=== PATIENT | male | born 2000 | race Hispanic/Latino ===

== ENCOUNTER 2024-05-06 07:29 | Emergency (ER) | payer OTHER ==
--- OUTSIDE RECORDS SUMMARY | 2024-05-06 07:33 | XMS REPORT | Continuity of Care Document ---
Author Name Unknown Address [address] [place] [address] [facility] thconnect Address 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 Role Phone RICH LOOMIS Attending Clinician Unavailable [id number] Attending Clinician Unavailable JOSE A GALVAN Attending Clinician UnavailBREANNE Malik Attending Clinician Unajoseline ilable Payers Payer Name Policy Type Policy Number Effective Date Expirati on Date Source [employer] 2 [id number] 2023 00:00:00 Problems Condition Name Condition Details Condition Category Status Onset Date Resolution Date Last Treatment Date Treating Clinician Comments Source Well adult exam Well adult exam Disease Active 12-14 00:00: 00 Kandy Brewer - Externa l ADHD ADHD Disease Active 11-16 00:00: 00 Kandy Salgadoold - Externa l Depression Depression Disease Active 11-16 00:00: 00 Kandy Salgadoold - Externa l Current mild episode of major depressive disorder without prior episode Current mild episode of major depressive disorder without prior episode Disease Active 11-16 00:00: 00 Kandy Salgadoold - Externa l Anxiety Anxiety Disease Active 11-16 00:00: 00 Kandy Salgadoold - Externa l Obesity Obesity Disease Active 11-16 00:00: 00 Kandy Seyingold - Externa l Migraine Migraine Disease Active 11-16 00:00: 00 Kandy Lovell l Social History Social Habit Start Date Stop Date Quantity Comments Source Sexual orientation Nisha marcano Daniella - External Alcoholic beverage intake 2024-03-11 00:00:00 2024-03-11 00:00:00 Current drinker of alcohol (finding) Kandy Brewer - External Alcohol intake 2023-12-14 00:00:00 2023-12-14 00:00:00 Current drinker of alcohol (finding) Kandy Brewer - External History of Social function 2023-11-16 00:00:00 2023-11-16 00:00:00 Kandy Brewer - External Education - What is the highest level of school you have completed or the highest degree you have received? 2023-11-16 00:00:00 2023-11-16 00:00:00 Associate degree: academic program Kandy Rosario External Alcohol Comment 2023-11-16 00:00:00 2023-11-16 00:00:00 rarely Kandy Brewer - External Tobacco use and exposure 2023-11-16 00:00:00 2023-11-16 00:00:00 Smokeless tobacco non-user Kandy Brewer - External Sex assigned at 2000 00:00:00 2000 00:00:00 Kandy Brewer - External Smoking Status Start Date Stop Date Source Never smoked tobacco Kandy Brewer - External Medications Ordered Medication Name Filled Medication Name Start Date Stop Date Current Medication? Ordering Clinician Indication Dosage Frequency Signature (SIG) Comments Components Source Duloxetine HCl [address] Particles 03-11 00:00: 00 Yes [id number] 60mg Take 1 capsule (60 mg total) by mouth every morning. Kandy dickson Lisdexamfet amine Dimesylate 50 MG oral Capsule 03-11 00:00: 00 Yes [id number] 50mg Take 1 capsule (50 mg total) by mouth daily. Kandy Mayorgaa l Semaglutide -SHELLIEAvni ght Management 0.25 MG/0.5ML Subcutaneou s Solution Auto-inject or 03-11 00:00: 00 Yes [id number] 104 .25mg Inject 0.25 mg into the skin once a week. Kandy dickson Topiramate (Topamax) 25 MG oral Tablet 4 00:00: 00 Yes [id number] 104 25mg Take 1 tablet (25 mg total) by mouth daily. Kandy dickson Lisdexamfet amine Dimesylate 50 MG oral Capsule 02-04 00:00: 00 03-11 00:00 :00 No [id number] 50mg Take 1 capsule (50 mg total) by mouth daily. Kandy dickson Lisdexamfet amine Dimesylate 50 MG oral Capsule 2-12 00:00: 00 Yes [id number] 50mg Take 1 capsule (50 mg total) by mouth daily. Kandy dickson Lisdexamfet amine Dimesylate 50 MG oral Capsule 16 00:00: 00 Yes [id number] 50mg Take 1 capsule (50 mg total) by mouth daily. Kandy dickson Topiramate (Topamax) 25 MG oral Tablet 16 00:00: 00 Yes [id number] 104 25mg Take 1 tablet (25 mg total) by mouth daily. Kandy dickson Duloxetine HCl [address] Particles 16 00:00: 00 03-11 00:00 :00 No [id number] 60mg Take 1 capsule (60 mg total) by mouth every morning. Kandy dickson Lisdexamfet amine Dimesylate 50 MG oral Capsule 15 00:00: 00 Yes [id number] 50mg Take 1 capsule (50 mg total) by mouth daily. Kandy dickson Topiramate (Topamax) 25 MG oral Tablet 15 00:00: 00 Yes [id number] 25mg Take 1 tablet (25 mg total) by mouth daily. Kandy dickson Lisdexamfet amine Dimesylate 50 MG oral Capsule 2022-11 2-11 00:00: 00 2024- 01-15 00:00 :00 No 50mg Take 1 capsule (50 mg total) by mouth daily. Kandy Daniella - Externa l Duloxetine HCl [address] Lerma 2022-11-21 00:00: 00 Yes 60mg Take 1 capsule (60 mg total) by mouth every morning. Kandy Summersgodfrey - Externa l Immunizations Ordered Immunization Name Filled Immunization Name Date Status Comments Source HEPATITIS A- PEDI/ADOL Unknown Completed Kandy old - External [facility]neum[facility], [facility] 7 [facility] (1Lay), Mrna-lnp, Ole Protein, Pf, 30mcg/0.3ml,IM [facility] (1Lay), Mrna-lnp, Ole Protein, Pf, 30mcg/0.3ml,IM Unknown Completed [facility] - External Meningococcal Vaccine- Conjugate(Menactra) Unknown Completed Kandy Chadwick eybold - External HPV (Human Papillomavirus) Unknown Com[facility] - [facility] HPV (Human Papillomavirus) Unknown Completed [facility] - External HPV (Human Papillomavirus) Unknown Completed [facility] - External HEPATITIS A- PEDI/ADOL Unknown Completed [facility] - External Pneumococcal Vaccine, Conjugate 7 [facility]- PEDI/ADOL Unknown Completed [facility] - External Pneumococcal Vaccine, Conjugate 7 Unknown Completed [facility] - External HEPATITIS A- PEDI/ADOL Unknown Completed [facility] - External Pneumococcal Vaccine, Conjugate 7 Unknown Completed [facility] - External Covid-19 Vaccine (1Lay), Mrna-lnp, Ole Protein, Pf, 30mcg/0.3ml,IM Unknown [facility] Cov[facility] Vaccine (Pfizer), Mrna-lnp, Ole Protein, Pf, 30mcg/0.3ml,IM Unknown [facility] Meningococcal Vaccine- Conjugate(Menactra) Unknown Completed Kandy eybold - External HPV (Human Papillomavirus) Unknown Completed [facility] - External HPV (Human Papillomavirus) Unknown Completed [facility] - External HPV (Human Papillomavirus) Unknown Completed [facility] - External Vital Signs Vital Name Observation Time Observation Value Comments S ource Diastolic blood pressure 2024-03-11 21:18:00 78 mm[Hg] Kandy Seybo ld - External Heart rate 2024-03-11 21:18:00 87 /min Kelse y Seybold - External Body temperature 2024-03-11 21:18:00 36.56 Cathleen Kandy Seybold - External Respiratory rate 2024-03-11 21:18:00 15 /min Kandy Seybold - External Body height 2024-03-11 21:18:00 182.9 cm Tawanna ey Seybold - External Body weight 2024-03-11 21:18:00 151.501 kg Tawanna ey Seybold - External BMI 2024-03-11 21:18:00 45.30 kg/m2 Tawanna ey Seybold - External Oxygen saturation in Arterial blood by Pulse oximetry 2024-03-11 21:18:00 100 /min Kandy Seybo ld - External Systolic blood pressure 2024-03-11 21:18:00 110 mm[Hg] Kandy Seybo ld - External Systolic blood pressure 2023-12-14 22:06:00 127 mm[Hg] Kandy Seybo ld - External Diastolic blood pressure 2023-12-14 22:06:00 81 mm[Hg] Kandy Seybo ld - External Heart rate 2023-12-14 22:06:00 90 /min Kelse y Seybold - External Body temperature 2023-12-14 22:06:00 36.72 Cathleen Kandy Seybold - External Respiratory rate 2023-12-14 22:06:00 15 /min Kandy Seybold - External Body height 2023-12-14 22:06:00 182.9 cm Tawanna ey Seybold - External Body weight 2023-12-14 22:06:00 151.501 kg Atwanna ey Seybold - External BMI 2023-12-14 22:06:00 45.30 kg/m2 Tawanna ey Seybold - External Oxygen saturation in Arterial blood by Pulse oximetry 2023-12-14 22:06:00 100 /min Kandy Seybo ld - External Systolic blood pressure 2023-11-27 14:05:00 108 mm[Hg] Kandy Seybo ld - External Diastolic blood pressure 2023-11-27 14:05:00 68 mm[Hg] Kandy Seybo ld - External Heart rate 2023-11-27 14:05:00 72 /min Kelse y Seybold - External Body temperature 2023-11-27 14:05:00 35.94 Cathleen Kandy Seybold - External Respiratory rate 2023-11-27 14:05:00 15 /min Kandy Seybold - External Body height 2023-11-27 14:05:00 182.9 cm Tawanna ey Seybold - External Body weight 2023-11-27 14:05:00 150.141 kg Tawanna ey Seybold - External BMI 2023-11-27 14:05:00 44.89 kg/m2 Tawanna ey Seybold - External Systolic blood pressure 2023-11-16 17:17:00 124 mm[Hg] Kandy Seybo ld - External Diastolic blood pressure 2023-11-16 17:17:00 74 mm[Hg] Kandy Seybo ld - External Heart rate 2023-11-16 17:17:00 82 /min Kelse y Seybold - External Body temperature 2023-11-16 17:17:00 36.39 Cathleen Kandy Seybold - External Respiratory rate 2023-11-16 17:17:00 16 /min Kandy Seybold - External Body height 2023-11-16 17:17:00 182.9 cm Tawanna ey Seybold - External Body weight 2023-11-16 17:17:00 152.409 kg Tawanna ey Seybold - External BMI 2023-11-16 17:17:00 45.57 kg/m2 Tawanna ey Seybold - External Oxygen saturation in Arterial blood by Pulse oximetry 2023-11-16 17:17:00 97 /min Kandy Salgadoo ld - External Encounters Start Date/Time End Date/Time Encounter Type Admission Type Attending [facility] Care Department Encounter ID Source 2024-06-10 16:15:00 2024-06-10 16:15:00 Outpatient RICH LOOMIS [id number] Kandy Brewer 2024-04-25 00:00:00 2024-04-25 00:00:00 Outpatient [facility]OM[facility] [id number] [facility] 2024-04-11 16:30:00 2024-04-11 16:30:00 Outpatient LABErich MONTERROSO KANDY [id number] [facility] 2024-04-11 16:00:00 2024-04-11 16:00:00 Outpatient JOSE A GALVAN KANDY [id number] [facility] 2024-04-11 00:00:00 2024-04-11 00:00:00 Outpatient PREZAS, RICH MONTERROSO KANDY [id number] [facility] 2024-03-11 16:15:00 2024-03-11 16:15:00 Outpatient PREZAS, RICH KANDY MONTERROSO [id number] [facility] 2024-02-29 00:00:00 2024-02-29 00:00:00 Outpatient PREZAS, RICH KANDY MONTERROSO [id number] [facility] 2024-02-04 00:00:00 2024-02-04 00:00:00 Outpatient PREZAS, RICH MONTERROSO KANDY [id number] [facility] 2023-12-14 16:15:00 2023-12-14 16:15:00 Outpatient PREZAS, RICH [facility] [id number] [facility] 2023-11-27 08:30:00 2023-11-27 08:30:00 Outpatient KENDY BREANNE KANDY MONTERROSO [id number] [facility] 2023-11-17 09:40:00 2023-11-17 09:40:00 Outpatient LAB90 KANDY KANDY [id number] [facility] 2023-11-17 00:00:00 2023-11-17 00:00:00 Outpatient PREZAS, RICH KANDY MONTERROSO [id number] Kandy Seybold 2023-11-17 00:00:00 2023-11-17 00:00:00 Outpatient PREZAS, RICH KANDY MONTERROSO [id number] [facility] 2023-11-16 11:15:00 2023-11-16 11:15:00 Outpatient PREZAS, RICH KANDY MONTERROSO [id number] Kandy Brewer Notes Date/Time Note Provider Source 2023-11-27 08:10:34 [id number]:10:34F ormatting of this note is different from the original.Chief ComplaintPatient presents withNose BleedHad a nose bleed [place] [id number] [id number]:11:29Nurse [id number]. [id number] for patient [id number] NoteLNNARRATIVEFormatted C-CDA narrative [address][id number]:11:[id number] 2.3.15|[id number]. [id number] [facility] 2023-11-16 11:19:20 [id number]:19:20F ormatting of this note is different from the original.Chief ComplaintPatient presents withADDmedicationsJeri Lauren Blandectronically signed by Talia Bland LVN at 11/16/2023 11:45 AM [id number] [id number]:45:50Nurse [id number]. [id number] for patient [id number] NoteLNNARRATIVEFormatted C-CDA narrative [address][id number]:45:[id number] 2.3.15|[id number]. [id number] [facility]"
[2024-05-06] MEDS ORDERED: IBUPROFEN 400 MG TAB ONE (07:45)
[2024-05-06 08:24] LABS: SARS-CoV-2 Antigen CONTROL BLUE LINE VIS/BG OK; SARS-CoV-2 Antigen Rapid Res Negative (Negative)
--- NOTE | 2024-05-06 09:21 | ER ---
Nurse's Notes [facility] Name: Stevo English III Age: 24 yrs Sex: Male : 2000 Arrival Date: 05/06/2024 Time: 07:29 Bed 11 Private MD: Diagnosis: Acute pharyngitis, unspecified Presentation: 05/06 07:41 Chief complaint: Patient states: Sore throat, fever, slight cough/congestion, fatigue, ll1 MCKEON, weak, hot/cold since last night. Coronavirus screen: Client denies travel out of the [place] in the last 14 days. chills, congestion, cough unrelated to allergies, fatigue, fever, headache, muscle pain, sore throat, Client presents with at least one sign or symptom that may indicate coronavirus-19. Standard/surgical mask placed on the client. Ebola Screen: Patient denies travel to an Ebola-affected area in the 21 days before illness onset. Initial Sepsis Screen: Does the patient meet any 2 criteria? No. Patient's initial sepsis screen is negative. Does the patient have a suspected source of infection? No. Patient's initial sepsis screen is negative. Risk Assessment: Do you want to hurt yourself or someone else? Patient reports no desire to harm self or others. Onset of symptoms was May 05, 2024. 07:41 Method Of Arrival: Ambulatory 1 07:41 Acuity: CHANDAN 3 ll1 Triage Assessment: 07:43 General: Appears uncomfortable, ill, Behavior is calm, cooperative, appropriate for ll1 age. Pain: Complains of pain in head Pain currently is 10 out of 10 on a pain scale. Quality of pain is described as aching, throbbing. EENT: Reports nasal congestion pain when swallowing. Neuro: Reports headache. Respiratory: Reports cough that is. Historical: - Allergies: 07:40 No Known Drug Allergies; ll1 - Home Meds: 07:40 Vyvanse oral [Active]; Fluoxetine Oral [Active]; Topamax Oral [Active]; ll1 - PMHx: 07:40 ADD; Bipolar disorder; ll1 - PSHx: 07:40 Tonsillectomy; ll1 - Immunization history:: Adult Immunizations up to date. - Infectious Disease History:: Denies. - Social history:: Smoking status: Patient denies any tobacco usage or history of. - Family history:: not pertinent. - Hospitalizations: : No recent hospitalization is reported. Screenin:44 [facility] ED Fall Risk Assessment (Adult) History of falling in the last 3 months, ll1 including since admission No falls in past 3 months (0 pts) Confusion or Disorientation No (0 pts) Intoxicated or Sedated No (0 pts) Impaired Gait No (0 pts) Mobility Assist Device Used No (0 pt) Altered Elimination No (0 pt) Score/Fall Risk Level 0 - 2 = Low Risk Maintained a safe environment, Hourly rounding (assess needs \T\ fall precautionary measures) done. Abuse screen: Denies threats or abuse. Nutritional screening: No deficits noted. Tuberculosis screening: No symptoms or risk factors identified. Assessment: 07:54 Reassessment: No changes from previously documented assessment. Patient and/or family ll1 updated on plan of care and expected duration. Pain level reassessed. Patient is alert, oriented x 3, equal unlabored respirations, skin warm/dry/pink. Vital Signs: 07:41 BP 105 / 73; Pulse 85; Resp 18; Temp 100.2(O); Pulse Ox 97% ; Weight 148.32 kg; Height ll1 6 ft. 0 in. ; Pain 10/10; 07:41 Body Mass Index 44.35 (148.32 kg, 182.88 cm) ll1 07:41 Pain Scale: Adult ll1 ED Course: 07:32 Patient arrived in ED. mg5 07:33 Bi Diallo MD is Attending Physician. rn 07:34 Arm band placed on Patient placed in an exam room, on a stretcher. ll1 07:43 Triage completed. ll1 07:44 Patient has correct armband on for positive identification. Bed in low position. Call ll1 light in reach. Provided Education on: ER procedures and process. Cardiac monitoring not applicable on this patient. 07:45 Miguel A Lopez, DICKSON is Primary Nurse. ll1 07:54 COVID swab sent to lab. Flu and/or RSV swab sent to lab. Strep swab sent to lab. ll1 Administered Medications: 07:54 Drug: Ibuprofen PO 800 mg PO once Route: PO; ll1 Medication: 07:44 VIS not applicable for this client. ll1 Outcome: 09:21 Discharge ordered by . rn 09:36 Patient left the ED. hb Signatures: Bi Diallo MD MD rn Astrid Zhong RN RN hb Miguel A Lopez RN RN ll1 Sue Bowie mg5
--- NOTE | 2024-05-06 09:22 | EDPHYS ---
Physician Documentation [facility] Name: Stevo English III Age: 24 yrs Sex: Male : 2000 Arrival Date: 05/06/2024 Time: 07:29 Bed 11 Private MD: ED Physician Bi Diallo HPI: 05/06 07:55 This 24 yrs old Male presents to ER via Ambulatory with complaints of Sore rn Throat, Fever. 07:55 The patient presents with sore throat. The patient describes throat pain as raw. Onset: rn The symptoms/episode began/occurred 2 day(s) ago. Severity of symptoms: At their worst the symptoms were mild, in the emergency department the symptoms are unchanged. Modifying factors: The symptoms are alleviated by nothing, the symptoms are aggravated by swallowing. Associated signs and symptoms: Pertinent positives: chills, fever, flu-like symptoms, rhinorrhea, Pertinent negatives shortness of breath. Historical: - Allergies: 07:40 No Known Drug Allergies; ll1 - Home Meds: 07:40 Vyvanse oral [Active]; Fluoxetine Oral [Active]; Topamax Oral [Active]; ll1 - PMHx: 07:40 ADD; Bipolar disorder; ll1 - PSHx: 07:40 Tonsillectomy; ll1 - Immunization history:: Adult Immunizations up to date. - Infectious Disease History:: Denies. - Social history:: Smoking status: Patient denies any tobacco usage or history of. - Family history:: not pertinent. - Hospitalizations: : No recent hospitalization is reported. ROS: 07:55 Constitutional: Positive for fever and chills ENT: Positive for sore throat and rn congestion Neck: Negative for injury, pain, and swelling, Cardiovascular: Negative for chest pain, palpitations, and edema, Respiratory: Negative for shortness of breath Abdomen/GI: Negative for abdominal pain, nausea, vomiting, diarrhea, and constipation, MS/Extremity: Negative for injury and deformity, Skin: Negative for injury, rash, and discoloration, Neuro: Positive for headache and generalized weakness/malaise Exam: 07:55 Constitutional: This is a well developed, well nourished patient who is awake, alert, rn and in no acute distress. Ambulatory to room without difficulty or assistance ENT: Mild pharyngeal erythema, no exudate or masses. Uvula midline. Neck: Tender bilateral cervical lymphadenopathy. No evidence of lymphadenitis. No meningismus Cardiovascular: Regular rate and rhythm. No pulse deficits. Respiratory: No increased work of breathing, no retractions or nasal flaring. Neuro: Awake and alert, GCS 15, Normal gait. Vital Signs: 07:41 BP 105 / 73; Pulse 85; Resp 18; Temp 100.2(O); Pulse Ox 97% ; Weight 148.32 kg; Height ll1 6 ft. 0 in. ; Pain 10/10; 07:41 Body Mass Index 44.35 (148.32 kg, 182.88 cm) ll1 07:41 Pain Scale: Adult ll1 MDM: 07:33 Patient medically screened. rn 09:20 Differential diagnosis: group A strep tonsillitis, influenza, laryngitis, pharyngitis, rn tonsillitis, viral syndrome. Data reviewed: vital signs, nurses notes, lab test result(s), and as a result, I will discharge patient. Counseling: I had a detailed discussion with the patient and/or guardian regarding the historical points, exam findings, and any diagnostic results supporting the discharge/admit diagnosis, lab results, the need for outpatient follow up, to return to the emergency department if symptoms worsen or persist or if there are any questions or concerns that arise at home. Special discussion: I discussed with the patient/guardian in detail that at this point there is no indication for admission to the hospital. It is understood, however, that if the symptoms persist or worsen the patient needs to return immediately for re-evaluation. 05/06 07:45 Order name: SARS RAPID; Complete Time: 09:20 rn 05/06 07:45 Order name: Flu; Complete Time: 09:20 rn 05/06 07:45 Order name: Strep; Complete Time: 09:20 rn 05/06 08:28 Order name: Throat Culture EDMS Administered Medications: 07:54 Drug: Ibuprofen PO 800 mg PO once Route: PO; ll1 Disposition Summary: 05/06/24 09:21 Discharge Ordered Notes: Location: Home rn Problem: new rn Symptoms: are unchanged rn Condition: Stable rn Diagnosis - Acute pharyngitis, unspecified rn Followup: rn - With: Private Physician - When: As needed - Reason: Recheck today's complaints, Re-evaluation by your physician Discharge Instructions: - Pharyngitis rn - Sore Throat rn - Discharge Summary Sheet [facility] Forms: - Medication Reconciliation Form rn - Antibiotic hand turner - Prescription Opioid Use rn - Patient Portal Instructions rn - Leadership Thank You Letter rn - Work release form ll1 Prescriptions: - Augmentin 875-125 mg Oral Tablet - take 1 tablet ORAL route every 12 hours for 10 days; 20 tablet; Refills: 0, rn Product Selection Permitted Signatures: Dispatcher [employer] Bi Remy MD MD rn Lewis, Lynsay, RN RN [facility]
[2024-05-06 10:27] VITALS: BP 105/73; TEMP 100.2; O2SAT 97
== END 2024-05-06 09:36 | disposition home or self-care (01) ==
LOC: ER 07:29
DX: J02.9 Acute pharyngitis, unspecified (principal); Z11.52 Encounter for screening for COVID-19
CPT/HCPCS: 36415; 87070; 87081; 87804; 87811; 99283